=== PATIENT | female | born 1990 | race Hispanic/Latino ===

== ENCOUNTER 2016-12-23 13:16 | Emergency (ER) | payer SELFPAY ==
--- NOTE | 2016-12-23 17:25 | Emergency Department Report ---
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 Patient states that 3 weeks ago she had an inversion injury to ankle while walking home. States she has been limping on ankle since. Visible mild swelling right ankle. Denies any other injuries. Patient is awake alert and oriented 3 stitches been taking Motrin with minimal relief of her pain MD Complaint: ankle injury, foot injury Onset/Timin -: week(s) Injury: Ankle: Right Type of Injury: inversion Place: home Severity: moderate Severity scale (0 -10): 6 Improves With: nothing Worsens With: weight bearing, movement Associated Symptoms: swelling, able to partially bear weight - Related Data Previous Rx's Medication Instructions Recorded Last Taken Type Ketorolac [Toradol] 10 mg PO Q6H PRN #30 tablet 12/23/16 Unknown Rx Allergies Allergy/AdvReac Type Severity Reaction Status Date / Time No Known Allergies Allergy Unverified 12/23/16 13:27 ED Review of Systems ROS: Stated complaint: RT ANKLE /FOOT SWOLLEN PAIN Other details as noted in HPI Constitutional: denies: chills, fever Eyes: denies: eye pain, eye discharge, vision change ENT: denies: ear pain, throat pain Respiratory: denies: cough, shortness of breath, wheezing Cardiovascular: denies: chest pain, palpitations Endocrine: no symptoms reported Gastrointestinal: denies: abdominal pain, nausea, diarrhea Genitourinary: denies: urgency, dysuria, discharge Musculoskeletal: as per HPI. denies: back pain, joint swelling, arthralgia Skin: denies: rash, lesions Neurological: denies: headache, weakness, paresthesias Psychiatric: denies: anxiety, depression Hematological/Lymphatic: denies: easy bleeding, easy bruising ED Past Medical Hx - Past Medical History Previous Medical History?: Yes Additional medical history: Back Pain - Surgical History Past Surgical History?: Yes Additional Surgical History: Wrist, tonsils - Social History Smoking Status: Current Every Day Smoker Substance Use Type: Heroin - Medications Home Medications: Home Medications Medication Instructions Recorded Confirmed Last Taken Type Ketorolac [Toradol] 10 mg PO Q6H PRN #30 tablet 12/23/16 Unknown Rx ED Physical Exam - General Limitations: No Limitations General appearance: alert, in no apparent distress - Head Head exam: Present: atraumatic, normocephalic - Eye Eye exam: Present: normal appearance, PERRL, EOMI - ENT ENT exam: Present: mucous membranes moist - Neck Neck exam: Present: normal inspection - Respiratory Respiratory exam: Present: normal lung sounds bilaterally. Absent: respiratory distress - Cardiovascular Cardiovascular Exam: Present: regular rate, normal rhythm. Absent: systolic murmur, diastolic murmur, rubs, gallop - GI/Abdominal GI/Abdominal exam: Present: soft, normal bowel sounds - Extremities Exam Extremities exam: Present: normal inspection - Expanded Lower Extremity Exam Right Hip exam: Present: normal inspection, full ROM Upper Leg exam: Present: normal inspection, full ROM Knee exam: Present: normal inspection, full ROM Lower Leg exam: Present: normal inspection, full ROM Ankle exam: Present: tenderness, swelling (mild tenderness and swelling lateral aspect of right ankle) Neuro vascular tendon exam: Present: no vascular compromise Gait: Positive: observed and limited by pain, antalgic 1 - Mild tenderness and swelling here distal pulses dorsalis pedis and posterior pedal pulses fully intact - Back Exam Back exam: Present: normal inspection - Neurological Exam Neurological exam: Present: alert, oriented X3, CN II-XII intact, abnormal gait - Psychiatric Psychiatric exam: Present: normal affect, normal mood - Skin Skin exam: Present: warm, dry, intact, normal color. Absent: rash ED Course Vital Signs 12/23/16 12/23/16 13:27 20:26 Temperature 98.6 F 98.4 F Pulse Rate 97 H 88 Respiratory 18 18 Rate Blood Pressure 128/82 Blood Pressure 122/74 [Right] O2 Sat by Pulse 96 97 Oximetry ED Lower Extremity MDM - Medical Decision Making A/P: Possible ligamentous ankle injury 1-as patient states that she twisted her ankle 2 weeks ago and has had some discomfort while walking with no evidence of fracture on x-ray patient likely has damage sprain or strain to the ligament of the ankle. Patient placed in an ankle splint stirrup with orthopnea a and given crutches for support I instructed her to be weightbearing as tolerated or to use crutches when the pain is significantly bothering her. Toradol by mouth when necessary for pain. I will give her referral to both podiatry and orthopedics for follow-up as she may require outpatient MRI of her foot and ankle. Distal pulses and sensation and range of motion are intact dorsiflexion and plantarflexion are intact against resistance 2-patient is able to ambulate using ankle stirrup with, orthopedic shoe and crutches 3-no contact sports for now Critical care attestation.: If time is entered above; I have spent that time in minutes in the direct care of this critically ill patient, excluding procedure time. ED Disposition Clinical Impression: Ankle sprain Qualifiers: Encounter type: initial encounter Involved ligament of ankle: tibiofibular ligament Laterality: right Qualified Code(s): S93.431A - Sprain of tibiofibular ligament of right ankle, initial encounter Disposition: DISCHARGED TO HOME OR SELFCARE Is pt being admited?: No Does the pt Need Aspirin: No Condition: Stable Instructions: Ankle Sprain (ED), Crutch Instructions (ED), Ankle Stirrup Splint (ED), RICE Therapy (ED) Prescriptions: Ketorolac [Toradol] 10 mg PO Q6H PRN #30 tablet PRN Reason: Pain Referrals: ARIN RODRIGUEZ DPM [Staff Physician] - 3-5 Days CONNOR XIE MD [Staff Physician] - 3-5 Days Forms: Work/School Release Form(ED) Time of Disposition: 19:58
[2016-12-23] MEDS ORDERED: TORADOL IM ONE (17:26)
--- NOTE | 2016-12-23 18:37 | XRay Report ---
FINAL REPORT PROCEDURE: XR FOOT 3 RT TECHNIQUE: RIGHT foot radiographs, AP, lateral, and oblique views. CPT 38224 HISTORY: Pain COMPARISON: No prior studies are available for comparison. FINDINGS: Fracture (s) and/or Dislocation(s): None . Alignment: Normal . Joint space(s): Normal . Soft tissues: Normal . Bone mineralization: Normal . Foreign bodies: None . Calcaneal spurring: None . IMPRESSION: Negative examination.
--- NOTE | 2016-12-23 18:38 | XRay Report ---
FINAL REPORT PROCEDURE: XR ANKLE 3 RT TECHNIQUE: RIGHT ankle radiographs, AP, lateral, and oblique views. CPT 19539 HISTORY: foot pain s/p twisting motion COMPARISON: No prior studies are available for comparison. FINDINGS: Fracture (s) and/or Dislocation(s): None. Alignment: Normal. Joint space(s): Normal. Soft tissues: Normal. Bone mineralization: Normal. Foreign bodies: None. Calcaneal spurring: None. IMPRESSION: Negative examination.
[2016-12-23 20:31] VITALS: BP 122/74
== END 2016-12-23 20:20 | disposition home or self-care (01) ==
LOC: ED 13:16
DX: S93.431A Sprain of tibiofibular ligament of right ankle, initial encounter (principal); F17.200 Nicotine dependence, unspecified, uncomplicated; F14.10 Cocaine abuse, uncomplicated; W01.0XXA Fall on same level from slipping, tripping and stumbling without subsequent striking against object, initial encounter; Y93.9 Activity, unspecified; Y92.9 Unspecified place or not applicable; Y99.9 Unspecified external cause status
CPT/HCPCS: 29515; 73610; 73630; 96372; 99283; J1885

== ENCOUNTER 2017-01-04 13:45 | Outpatient (CLI) | payer BC | END 2017-01-04 13:46 | disposition home or self-care (01) | LOC: LAB 13:45 | PROVIDERS: ATTEND Psychiatry & Neurology Psychiatry | DX: Z03.89 Encounter for observation for other suspected diseases and conditions ruled out (principal) | CPT/HCPCS: 36415; 86592 ==